=== PATIENT | female | born 1960 | race Caucasian/White ===

== ENCOUNTER → 2018-09-14 | Outpatient (CLI) | payer SELFPAY ==
[~2018-09-14] MED LIST: LEVOXYL0.125 MG PO; TENORMIN 2525 MG/TAB PO
== END ==
LOC: MC.RAD 13:37
DX: Z12.31 Encounter for screening mammogram for malignant neoplasm of breast (principal)

== ENCOUNTER → 2021-10-15 | Outpatient (CLI) | payer SELFPAY | LOC: ZCOL.LAB 15:44 | DX: Z20.822 Contact with and (suspected) exposure to COVID-19 (principal) ==